=== PATIENT | male | born 2000 | race Caucasian/White ===

== ENCOUNTER 2024-07-16 15:17 | Emergency (ER) | payer SELFPAY ==
[~2024-07-16] VITALS: Ht 170.2 cm; Wt 59.0 kg
[2024-07-16 15:25] VITALS: BP 132/80; PULSE 87; RESP 18; TEMP 36.7; O2SAT 99
== END 2024-07-16 15:27 | disposition left against medical advice (07) ==
LOC: ER 15:24
DX: B86 Scabies (principal); Z53.21 Procedure and treatment not carried out due to patient leaving prior to being seen by health care provider